=== PATIENT | female | born 1945 | race Caucasian/White ===

== ENCOUNTER 2017-10-11 12:43 | Inpatient (IN) | payer MEDICARE, BC ==
[2017-10-11] MEDS ORDERED: Cyclobenzaprine 10 MG Tab PO PRN (17:03)
[2017-10-11] MEDS ORDERED: Albuterol 8 GM Inhaler INH PRN (17:03)
--- NOTE | 2017-10-11 17:30 | PCM.HP ---
H&P History of Present Illness - General Date of Service: 10/11/17 Admit Problem/Dx: Admission Diagnosis/Problem Admission Diagnosis/Problem Laminectomy Source of Information: Patient, Old Records History Limitations: Reports: No Limitations - History of Present Illness Initial Comments - Free Text/Narative: This is a 71-year-old female patient that had back surgery one week ago for spinal stenosis, osteophytes and a Restorationism. She was transferred here for swing bed. She says she has back pain as 5/10. She is having pain that radiated down her right leg seems to be a little bit better. She has no other concerns today. Lower Back Pain Score (Numeric/FACES): 5 - Related Data Allergies/Adverse Reactions: Allergies Allergy/AdvReac Type Severity Reaction Status Date / Time diatrizoate meglumine Allergy Itching Verified 10/11/17 16:02 Home Medications: Home Meds Albuterol Sulfate [Albuterol Sulfate HFA] 2 puff PO Q4H PRN 01/07/15 [History] Budesonide/Formoterol Fumarate [Symbicort 80-4.5 Mcg Inhaler] 2 puff PO BEDTIME 01/07/15 [History] Cetirizine HCl [Zyrtec] 10 mg PO DAILY 01/07/15 [History] Losartan Potassium [Cozaar] 100 mg PO DAILY 01/07/15 [History] Metoprolol Tartrate [Lopressor] 50 mg PO BID 01/07/15 [History] Simvastatin [Zocor] 40 mg PO BEDTIME 01/07/15 [History] Acetaminophen [Tylenol Extra Strength] 1,000 mg PO Q6H PRN 10/11/17 [History] Acetaminophen/oxyCODONE [Percocet 325-5 MG] 1 - 2 tab PO Q6H PRN 10/11/17 [ History] Calcitriol 0.25 mcg PO MOWEFR 10/11/17 [History] Cholecalciferol (Vitamin D3) [Vitamin D3] 1,000 unit PO DAILY 10/11/17 [History] Cyclobenzaprine [Flexeril] 10 mg PO TID PRN 10/11/17 [History] Magnesium Chloride [Mag-64] 64 mg PO DAILY 10/11/17 [History] Methimazole [Tapazole] 5 mg PO INFANTE 10/11/17 [History] Methimazole [Tapazole] 10 mg PO MOTUWETHFRSA 10/11/17 [History] Triamcinolone Acetonide [Nasacort AQ Cutler] 2 spray NASBOTH DAILY PRN 10/11/17 [ History] Viteyes Areds Advanced Or 1 cap PO BID 10/11/17 [History] Past Medical History HEENT History: Reports: Cataract, Sinusitis Cardiovascular History: Reports: Heart Murmur, High Cholesterol, Hypertension, SOB on Exertion Respiratory History: Reports: Asthma, COPD, SOB Genitourinary History: Reports: Other (See Below) Other Genitourinary History: CKD [facility] History: Reports: Musculoskeletal History: Reports: Back Pain, Chronic, Osteoarthritis, Other ( See Below) Other Musculoskeletal History: osteopenia Endocrine/Metabolic History: Reports: Hyperthyroidism, Obesity/BMI 30+, Osteopenia Dermatologic History: Reports: Other (See Below) Other Dermatologic History: dry flaky skin - Infectious Disease History Infectious Disease History: Reports: Chicken Pox, Measles, Mumps, Shingles - Past Surgical History HEENT Surgical History: Reports: Cataract Surgery GI Surgical History: Reports: Appendectomy Female Surgical History: Reports: Breast Biopsy, Hysterectomy, Oophorectomy Neurological Surgical History: Reports: Discectomy, Laminectomy, Lumbar Spine, Spinal Fusion Social & Family History - Family History Family Medical History: Noncontributory - Tobacco Use Smoking Status *Q: Former Smoker Years of Tobacco use: 30 Packs/Tins Daily: 1.5 Used Tobacco, but Quit: Yes Month Tobacco Last Used: Nov 2005 Second Hand Smoke Exposure: Yes - Caffeine Use Caffeine Use: Reports: None - Alcohol Use Days Per Week of Alcohol Use: 7 Number of Drinks Per Day: 2 Total Drinks Per Week: 14 - Recreational Drug Use Recreational Drug Use: No Drug Use in Last 12 Months: No H&P Review of Systems - Review of Systems: Review Of Systems: See Below General: Reports: No Symptoms HEENT: Reports: No Symptoms Pulmonary: Reports: No Symptoms Cardiovascular: Reports: No Symptoms Gastrointestinal: Reports: Constipation Genitourinary: Reports: No Symptoms Musculoskeletal: Reports: Back Pain, Leg Pain Skin: Reports: No Symptoms Psychiatric: Reports: No Symptoms Neurological: Reports: No Symptoms Hematologic/Lymphatic: Reports: No Symptoms Immunologic: Reports: No Symptoms Exam - Exam Exam: See Below - Vital Signs Vital Signs: Last Vital Signs Temp 97.6 F 10/11/17 15:05 Pulse 76 10/11/17 15:05 Resp 18 10/11/17 15:05 BP 137/49 L 10/11/17 15:05 Pulse Ox 99 10/11/17 15:05 Weight: 204 lb 11.2 oz - Exam General: Alert, Oriented, Cooperative HEENT: PERRLA, Mucosa Moist & Bowdle, Posterior Pharynx Clear, TMs Clear Neck: Supple, Trachea Midline Lungs: Clear to Auscultation, Normal Respiratory Effort. No: Crackles, Rales, Rhonchi Cardiovascular: Regular Rate, Regular Rhythm. No: Systolic Murmur, Diastolic Murmur GI/Abdominal Exam: Normal Bowel Sounds, Soft, Non-Tender, No Organomegaly, No Distention, No Abnormal Bruit, No Mass Back Exam: Other (Bruising lower part of the back. Incision has renay in and healing nicely) Extremities: No Pedal Edema Skin: Warm Neuro Extensive - Mental Status: Alert, Oriented x3, Normal Mood/Affect, Normal Cognition, Memory Intact Psychiatric: Alert, Normal Affect, Normal Mood *Q Meaningful Use (ADM) - VTE *Q VTE Criteria *Q: - Stroke *Q Stroke Criteria *Q: - AMI *Q AMI Criteria *Q: - Problem List (1) Status post lumbar spinal fusion SNOMED Code(s): 69171587256867, [id number] ICD Code: Z98.1 - ARTHRODESIS STATUS Status: Acute Current Visit: Yes Problem List Initiated/Reviewed/Updated: Yes Orders Last 24hrs: Active Orders 24 hr Category Date Time Status Admission Status [Patient Status] [ADT] Routine ADT 10/11/17 14:54 Active Activity as Tolerated [RC] .Routine Care 10/11/17 16:22 Active May Shower [RC] ASDIRECTED Care 10/11/17 16:28 Active Wound Care [RC] QSHIFT Care 10/11/17 16:22 Active OT Evaluation and Treatment [CONS] Routine Cons 10/11/17 16:22 Active PT Evaluation and Treatment [CONS] Routine Cons 10/11/17 16:22 Active Regular Diet [DIET] Diet 10/12/17 Breakfast Active Acetaminophen [Tylenol Extra Strength] Med 10/11/17 17:03 Ordered 1,000 mg PO Q6H PRN Acetaminophen/oxyCODONE [Percocet 325-5 MG] Med 10/11/17 17:03 Ordered 1 tab PO Q6H PRN Albuterol [Ventolin HFA] Med 10/11/17 17:03 Ordered DOSE gm INH Q4H PRN Budesonide/Formoterol Fumarate [Symbicort 80-4.5 Mcg Med 10/11/17 21:00 Ordered Inhaler] 2 puff PO BEDTIME Calcitriol [Rocaltrol] Med 10/11/17 17:15 Ordered 0.25 mcg PO MOWEFR Cetirizine HCl [Zyrtec] Med 10/12/17 09:00 Ordered 10 mg PO DAILY Cholecalciferol (Vitamin D3) [Vitamin D3] Med 10/12/17 09:00 Ordered 1,000 units PO DAILY Cyclobenzaprine [Flexeril] Med 10/11/17 17:03 Ordered 10 mg PO TID PRN Losartan [Cozaar] Med 10/12/17 09:00 Ordered 100 mg PO DAILY Magnesium Chloride [Mag-64] Med 10/12/17 09:00 Ordered 64 mg PO DAILY Methimazole [Tapazole] Med 10/11/17 17:15 Ordered 10 mg PO MOTUWETHFRSA Methimazole [Tapazole] Med 10/17/17 17:03 Ordered 5 mg PO INFANTE Metoprolol Tartrate [Lopressor] Med 10/11/17 21:00 Ordered 50 mg PO BID Simvastatin [Zocor] Med 10/11/17 21:00 Ordered 40 mg PO BEDTIME Triamcinolone Acetonide [Nasacort AQ Cutler] Med 10/11/17 17:03 Ordered DOSE gm NASBOTH DAILY PRN Vinay Areds Advanced Or Med 10/11/17 21:00 Ordered 1 cap PO BID Resuscitation Status Routine Resus Stat 10/11/17 16:22 Ordered Medication Orders Acetaminophen (Tylenol Extra Strength) 1,000 mg PO Q6H PRN PRN Reason: Pain Albuterol (Ventolin Hfa) gm INH Q4H PRN PRN Reason: Dyspnea Calcitriol (Rocaltrol) 0.25 mcg PO MOWEFR SUNDAR Cholecalciferol (Vitamin D3) 1,000 units PO DAILY SUNDAR Cyclobenzaprine HCl (Flexeril) 10 mg PO TID PRN PRN Reason: muscle spasms Losartan Potassium (Cozaar) 100 mg PO DAILY SUNDAR Magnesium Chloride (Mag-64) 64 mg PO DAILY SUNDAR Metoprolol Tartrate (Lopressor) 50 mg PO BID SUNDAR Non-Formulary Medication (Budesonide/Formoterol Fumarate [Symbicort 80-4.5 Mcg Inhaler]) 2 puff PO BEDTIME SUNDAR Non-Formulary Medication (Cetirizine Hcl [Zyrtec]) 10 mg PO DAILY SUNDAR Non-Formulary Medication (Methimazole [Tapazole]) 5 mg PO INFANTE SUNDAR Non-Formulary Medication (Methimazole [Tapazole]) 10 mg PO MOTUWETHFRSA SUNDAR Non-Formulary Medication (Viteyes Areds Advanced Or) 1 cap PO BID SUNDAR Oxycodone/Acetaminophen (Percocet 325-5 Mg) 1 tab PO Q6H PRN PRN Reason: MODERATE PAIN Simvastatin (Zocor) 40 mg PO BEDTIME SUNDAR Triamcinolone Acetonide (Nasacort Aq Cutler) gm NASBOTH DAILY PRN PRN Reason: Rhinitis Assessment/Plan Comment:: . Admit to swing bed. 2. Continue her medications from [facility]. 3. PT/OT. 4. Regular diet. 5. Up per PT/OT.
[2017-10-11] MEDS ORDERED: Calcitriol 0.25 MCG Cap PO SCH (17:45)
[2017-10-11] MEDS ORDERED: Methimazole 5 MG Tab PO ONE (18:30)
[2017-10-11] MEDS: Acetaminophen/oxyCODONE 325-5 MG Tab PO PRN (19:04)
[2017-10-11] MEDS ORDERED: Formoterol/Mometasone 100-5 MCG 8.8 GM Inhaler IH SCH (21:00)
[2017-10-11] MEDS ORDERED: Metoprolol Tartrate 100 MG Tab PO SCH (21:00)
[2017-10-11] MEDS: Simvastatin 40 MG Tab PO SCH (21:25)
[2017-10-12] MEDS: Acetaminophen/oxyCODONE 325-5 MG Tab PO PRN ×4 (01:37→21:47)
[2017-10-12] MEDS ORDERED: Fluticasone Propionate Nasal Spray 16 GM Bottle NASBOTH PRN (09:00)
[2017-10-12] MEDS: Metoprolol Tartrate 50 MG Tab PO SCH ×2 (09:05→21:46)
[2017-10-12] MEDS: Cetirizine 10 MG Tab PO SCH (09:05)
[2017-10-12] MEDS: Magnesium Chloride 64 MG Tab.ER PO SCH (09:06)
[2017-10-12] MEDS: Losartan 100 MG Tab PO SCH (09:06)
[2017-10-12] MEDS: Cholecalciferol (Vitamin D3) 1,000 Unit Tab PO SCH (09:06)
[2017-10-12] MEDS: Methimazole 5 MG Tab PO SCH (09:10)
[2017-10-12] MEDS: Lutein/Minerals/Vitamin C/Vitamin E Acetate Cap PO SCH ×2 (09:14→21:46)
[2017-10-12] MEDS ORDERED: Magnesium Hydroxide 400 MG/5 ML Susp 30 ML Cup PO PRN (10:48)
[2017-10-12] MEDS: Formoterol/Mometasone 100-5 MCG 8.8 GM Inhaler IH SCH (21:45)
[2017-10-12] MEDS: Simvastatin 40 MG Tab PO SCH (21:46)
[2017-10-12] MEDS: Docusate Sodium 100 MG Cap PO SCH (21:51)
[2017-10-13] MEDS: Acetaminophen/oxyCODONE 325-5 MG Tab PO PRN ×3 (07:56→21:15)
[2017-10-13] MEDS: Metoprolol Tartrate 50 MG Tab PO SCH ×2 (09:10→21:14)
[2017-10-13] MEDS: Calcitriol 0.25 MCG Cap PO SCH (09:10)
[2017-10-13] MEDS: Magnesium Chloride 64 MG Tab.ER PO SCH (09:10)
[2017-10-13] MEDS: Lutein/Minerals/Vitamin C/Vitamin E Acetate Cap PO SCH ×2 (09:10→21:14)
[2017-10-13] MEDS: Docusate Sodium 100 MG Cap PO SCH ×2 (09:11→21:13)
[2017-10-13] MEDS: Methimazole 5 MG Tab PO SCH (09:11)
[2017-10-13] MEDS: Losartan 100 MG Tab PO SCH (09:11)
[2017-10-13] MEDS: Cetirizine 10 MG Tab PO SCH (09:12)
[2017-10-13] MEDS: Cholecalciferol (Vitamin D3) 1,000 Unit Tab PO SCH (09:12)
[2017-10-13] MEDS: Formoterol/Mometasone 100-5 MCG 8.8 GM Inhaler IH SCH (21:13)
[2017-10-13] MEDS: Simvastatin 40 MG Tab PO SCH (21:14)
[2017-10-14] MEDS: Acetaminophen/oxyCODONE 325-5 MG Tab PO PRN ×3 (08:24→22:05)
[2017-10-14] MEDS: Docusate Sodium 100 MG Cap PO SCH ×2 (08:29→20:07)
[2017-10-14] MEDS: Methimazole 5 MG Tab PO SCH (08:29)
[2017-10-14] MEDS: Lutein/Minerals/Vitamin C/Vitamin E Acetate Cap PO SCH ×2 (08:30→20:08)
[2017-10-14] MEDS: Losartan 100 MG Tab PO SCH (08:30)
[2017-10-14] MEDS: Magnesium Chloride 64 MG Tab.ER PO SCH (08:30)
[2017-10-14] MEDS: Metoprolol Tartrate 50 MG Tab PO SCH ×2 (08:30→20:08)
[2017-10-14] MEDS: Cetirizine 10 MG Tab PO SCH (08:31)
[2017-10-14] MEDS: Cholecalciferol (Vitamin D3) 1,000 Unit Tab PO SCH (08:31)
[2017-10-14] MEDS: Formoterol/Mometasone 100-5 MCG 8.8 GM Inhaler IH SCH (20:07)
[2017-10-14] MEDS: Simvastatin 40 MG Tab PO SCH (20:10)
[2017-10-15] MEDS: Acetaminophen/oxyCODONE 325-5 MG Tab PO PRN ×2 (05:39→18:47)
[2017-10-15] MEDS: Calcitriol 0.25 MCG Cap PO SCH (08:30)
[2017-10-15] MEDS: Magnesium Chloride 64 MG Tab.ER PO SCH (08:30)
[2017-10-15] MEDS: Methimazole 5 MG Tab PO SCH (08:30)
[2017-10-15] MEDS: Docusate Sodium 100 MG Cap PO SCH ×2 (08:31→21:42)
[2017-10-15] MEDS: Lutein/Minerals/Vitamin C/Vitamin E Acetate Cap PO SCH ×2 (08:32→21:42)
[2017-10-15] MEDS: Metoprolol Tartrate 50 MG Tab PO SCH ×2 (08:32→21:45)
[2017-10-15] MEDS: Cetirizine 10 MG Tab PO SCH (08:32)
[2017-10-15] MEDS: Losartan 100 MG Tab PO SCH (08:32)
[2017-10-15] MEDS: Cholecalciferol (Vitamin D3) 1,000 Unit Tab PO SCH (08:33)
[2017-10-15] MEDS: Acetaminophen 500 MG Tab PO PRN (10:31)
[2017-10-15] MEDS ORDERED: Aluminum Hydroxide/Magnesium Hydroxide Susp 30 ML Cup PO PRN (16:11)
[2017-10-15] MEDS: Simvastatin 40 MG Tab PO SCH (21:41)
[2017-10-15] MEDS: Formoterol/Mometasone 100-5 MCG 8.8 GM Inhaler IH SCH (21:42)
[2017-10-16] MEDS: Methimazole 5 MG Tab PO SCH (08:45)
[2017-10-16] MEDS: Losartan 100 MG Tab PO SCH (08:45)
[2017-10-16] MEDS: Docusate Sodium 100 MG Cap PO SCH ×2 (08:45→21:01)
[2017-10-16] MEDS: Lutein/Minerals/Vitamin C/Vitamin E Acetate Cap PO SCH ×2 (08:46→21:00)
[2017-10-16] MEDS: Metoprolol Tartrate 50 MG Tab PO SCH ×2 (08:46→21:02)
[2017-10-16] MEDS: Cholecalciferol (Vitamin D3) 1,000 Unit Tab PO SCH (08:46)
[2017-10-16] MEDS: Magnesium Chloride 64 MG Tab.ER PO SCH (08:46)
[2017-10-16] MEDS: Cetirizine 10 MG Tab PO SCH (08:46)
[2017-10-16] MEDS: Acetaminophen/oxyCODONE 325-5 MG Tab PO PRN ×2 (09:10→22:39)
[2017-10-16] MEDS: Formoterol/Mometasone 100-5 MCG 8.8 GM Inhaler IH SCH (21:00)
[2017-10-16] MEDS: Simvastatin 40 MG Tab PO SCH (21:01)
[2017-10-17] MEDS ORDERED: Methimazole 5 MG Tab PO SCH (08:00)
[2017-10-17] MEDS: Lutein/Minerals/Vitamin C/Vitamin E Acetate Cap PO SCH ×2 (08:17→21:27)
[2017-10-17] MEDS: Cholecalciferol (Vitamin D3) 1,000 Unit Tab PO SCH (08:17)
[2017-10-17] MEDS: Cetirizine 10 MG Tab PO SCH (08:17)
[2017-10-17] MEDS: Magnesium Chloride 64 MG Tab.ER PO SCH (08:17)
[2017-10-17] MEDS: Metoprolol Tartrate 50 MG Tab PO SCH ×2 (08:17→21:26)
[2017-10-17] MEDS: Docusate Sodium 100 MG Cap PO SCH ×2 (08:18→21:26)
[2017-10-17] MEDS: Losartan 100 MG Tab PO SCH (08:18)
[2017-10-17] MEDS ORDERED: Ondansetron 4 MG Tab.DIS PO PRN (08:57)
[2017-10-17] MEDS: Acetaminophen/oxyCODONE 325-5 MG Tab PO PRN ×2 (10:57→23:06)
[2017-10-17] MEDS ORDERED: Pantoprazole 40 MG Tab.CR PO ONE (11:03)
[2017-10-17] MEDS: Acetaminophen 500 MG Tab PO PRN (18:41)
[2017-10-17] MEDS: Formoterol/Mometasone 100-5 MCG 8.8 GM Inhaler IH SCH (21:26)
[2017-10-17] MEDS: Simvastatin 40 MG Tab PO SCH (21:27)
[2017-10-18] MEDS: Magnesium Chloride 64 MG Tab.ER PO SCH (08:33)
[2017-10-18] MEDS: Metoprolol Tartrate 50 MG Tab PO SCH ×2 (08:33→20:17)
[2017-10-18] MEDS: Cholecalciferol (Vitamin D3) 1,000 Unit Tab PO SCH (08:33)
[2017-10-18] MEDS: Calcitriol 0.25 MCG Cap PO SCH (08:33)
[2017-10-18] MEDS: Losartan 100 MG Tab PO SCH (08:33)
[2017-10-18] MEDS: Lutein/Minerals/Vitamin C/Vitamin E Acetate Cap PO SCH ×2 (08:33→20:17)
[2017-10-18] MEDS: Cetirizine 10 MG Tab PO SCH (08:33)
[2017-10-18] MEDS: Pantoprazole 40 MG Tab.CR PO SCH (08:34)
[2017-10-18] MEDS: Docusate Sodium 100 MG Cap PO SCH ×2 (08:34→20:16)
[2017-10-18] MEDS: Methimazole 5 MG Tab PO SCH (08:34)
[2017-10-18] MEDS: Acetaminophen/oxyCODONE 325-5 MG Tab PO PRN ×3 (09:38→23:15)
[2017-10-18] MEDS: Acetaminophen 500 MG Tab PO PRN (17:02)
[2017-10-18] MEDS: Formoterol/Mometasone 100-5 MCG 8.8 GM Inhaler IH SCH (20:16)
[2017-10-18] MEDS: Simvastatin 40 MG Tab PO SCH (20:17)
[2017-10-19] MEDS: Pantoprazole 40 MG Tab.CR PO SCH ×2 (05:51→08:08)
[2017-10-19] MEDS: Lutein/Minerals/Vitamin C/Vitamin E Acetate Cap PO SCH ×2 (08:08→20:47)
[2017-10-19] MEDS: Methimazole 5 MG Tab PO SCH (08:10)
[2017-10-19] MEDS: Losartan 100 MG Tab PO SCH (08:11)
[2017-10-19] MEDS: Docusate Sodium 100 MG Cap PO SCH ×2 (08:11→20:46)
[2017-10-19] MEDS: Metoprolol Tartrate 50 MG Tab PO SCH ×2 (08:12→20:49)
[2017-10-19] MEDS: Magnesium Chloride 64 MG Tab.ER PO SCH (08:13)
[2017-10-19] MEDS: Cetirizine 10 MG Tab PO SCH (08:13)
[2017-10-19] MEDS: Cholecalciferol (Vitamin D3) 1,000 Unit Tab PO SCH (08:13)
[2017-10-19] MEDS: Acetaminophen 500 MG Tab PO PRN (08:27)
[2017-10-19] MEDS: Acetaminophen/oxyCODONE 325-5 MG Tab PO PRN ×2 (14:03→23:39)
[2017-10-19] MEDS: Simvastatin 40 MG Tab PO SCH (20:46)
[2017-10-19] MEDS: Formoterol/Mometasone 100-5 MCG 8.8 GM Inhaler IH SCH (20:46)
[2017-10-20] MEDS: Acetaminophen/oxyCODONE 325-5 MG Tab PO PRN ×2 (08:08→22:14)
[2017-10-20] MEDS: Calcitriol 0.25 MCG Cap PO SCH (08:15)
[2017-10-20] MEDS: Pantoprazole 40 MG Tab.CR PO SCH (08:15)
[2017-10-20] MEDS: Methimazole 5 MG Tab PO SCH (08:15)
[2017-10-20] MEDS: Metoprolol Tartrate 50 MG Tab PO SCH ×2 (09:35→20:02)
[2017-10-20] MEDS: Losartan 100 MG Tab PO SCH (09:35)
[2017-10-20] MEDS: Magnesium Chloride 64 MG Tab.ER PO SCH (09:35)
[2017-10-20] MEDS: Docusate Sodium 100 MG Cap PO SCH ×2 (09:35→20:00)
[2017-10-20] MEDS: Cholecalciferol (Vitamin D3) 1,000 Unit Tab PO SCH (09:36)
[2017-10-20] MEDS: Cetirizine 10 MG Tab PO SCH (09:36)
[2017-10-20] MEDS: Lutein/Minerals/Vitamin C/Vitamin E Acetate Cap PO SCH ×2 (09:36→20:02)
[2017-10-20] MEDS: Acetaminophen 500 MG Tab PO PRN ×2 (11:09→18:40)
[2017-10-20] MEDS: Formoterol/Mometasone 100-5 MCG 8.8 GM Inhaler IH SCH (20:01)
[2017-10-20] MEDS: Simvastatin 40 MG Tab PO SCH (20:03)
[2017-10-21] MEDS: Acetaminophen 500 MG Tab PO PRN ×2 (04:30→11:44)
[2017-10-21] MEDS: Pantoprazole 40 MG Tab.CR PO SCH (09:28)
[2017-10-21] MEDS: Docusate Sodium 100 MG Cap PO SCH (09:28)
[2017-10-21] MEDS: Methimazole 5 MG Tab PO SCH (09:28)
[2017-10-21] MEDS: Losartan 100 MG Tab PO SCH (09:28)
--- NOTE | 2017-10-21 09:28 | DISCH ---
DISCHARGE DATE: 10/21/2017 REASON FOR ADMISSION: 1. Status post lumbar fusion and laminectomy. 2. CKD. 3. COPD. 4. Hypertension. 5. Hyperlipidemia. CONSULTATIONS: Physical and Occupational Therapy. BRIEF HISTORY AND HOSPITAL COURSE: A 71-year-old female who had laminectomy in [facility] and was admitted on the for pain control, physical therapy and rehab before going home. She did well with physical and occupation therapy. She did not use any Flexeril, was using Percocet for pain as needed. Had some constipation, treated with stool softeners. She was deemed stable and ready to go home physically on the and we will discharge her home on regular medications, and a prescription of Percocet. DISCHARGE MEDICATIONS: 1. Metoprolol 50 mg b.i.d. 2. Methimazole 10 mg p.o. 6 days a week and 5 mg on Sundays. 3. Magnesium chloride 64 mg daily. 4. Losartan 100 mg a day. 5. Vitamin D3 1000 units daily. 6. Calcitriol 0.25 mcg 3 times a week. 7. Symbicort 2 puffs at bedtime. 8. Albuterol p.r.n. 9. Percocet 30 tabs to take 1 every 6 hours p.r.n. 10.Triamcinolone acetonide 2 sprays in both nostrils p.r.n. 11.Tylenol 1000 mg every 6 hours p.r.n. 12.Zocor 40 mg a day at night. FOLLOWUP: The patient is advised to see Luciana Duvall at the clinic within a week of discharge and follow up with neurosurgeon as previously scheduled. I spent more than 35 minutes in the discharge of this patient. Please note that she will go home with home health to help with medications and skilled need for physical therapy outpatient. /[id number] EMMA/GAL
[2017-10-21] MEDS: Magnesium Chloride 64 MG Tab.ER PO SCH (09:31)
[2017-10-21] MEDS: Metoprolol Tartrate 50 MG Tab PO SCH (09:31)
[2017-10-21 09:32] VITALS: BP 113/61
[2017-10-21] MEDS: Cholecalciferol (Vitamin D3) 1,000 Unit Tab PO SCH (09:32)
[2017-10-21] MEDS: Lutein/Minerals/Vitamin C/Vitamin E Acetate Cap PO SCH (09:32)
[2017-10-21] MEDS: Cetirizine 10 MG Tab PO SCH (09:32)
[2017-10-21] MEDS: Acetaminophen/oxyCODONE 325-5 MG Tab PO PRN (13:05)
== END 2017-10-21 13:15 | disposition home health service (06) | DRG 561 ==
LOC: FB.MS 14:45
PROVIDERS: ADMIT Family Medicine; ATTEND Family Medicine
DX: Z47.89 Encounter for other orthopedic aftercare (principal); G89.29 Other chronic pain; M54.9 Dorsalgia, unspecified; J44.9 Chronic obstructive pulmonary disease, unspecified; I12.9 Hypertensive chronic kidney disease with stage 1 through stage 4 chronic kidney disease, or unspecified chronic kidney disease; N18.9 Chronic kidney disease, unspecified; E78.5 Hyperlipidemia, unspecified; M19.90 Unspecified osteoarthritis, unspecified site; M85.80 Other specified disorders of bone density and structure, unspecified site; E66.9 Obesity, unspecified; E03.9 Hypothyroidism, unspecified; Z87.891 Personal history of nicotine dependence; Z79.899 Other long term (current) drug therapy
CPT/HCPCS: 97112-GP; 97116-GP; 97161-GP; 97165-GO; 97530-GO; 97530-GO-KX; 97530-GP; 97535-GO; A9270-GY

== ENCOUNTER 2022-09-17 17:43 | Emergency (ER) | payer MEDICARE, BC ==
[2022-09-17 18:05] VITALS: BP 107/59; PULSE 85
[2022-09-17] MEDS ORDERED: Sodium Chloride 0.9% 1,000 ML IV ONE ×2 (18:15)
[2022-09-17 18:52] LABS: ESTIMATED GFR 16 mL/min (>60)
[2022-09-17] MEDS ORDERED: Carbidopa/Levodopa 10-100 MG Tab PO ONE (20:22)
== END 2022-09-17 22:25 ==
LOC: FB.ED 17:43
DX: I44.0 Atrioventricular block, first degree (principal); I44.7 Left bundle-branch block, unspecified; K85.90 Acute pancreatitis without necrosis or infection, unspecified; N17.9 Acute kidney failure, unspecified; E86.0 Dehydration; R79.89 Other specified abnormal findings of blood chemistry; R79.82 Elevated C-reactive protein (CRP); I12.9 Hypertensive chronic kidney disease with stage 1 through stage 4 chronic kidney disease, or unspecified chronic kidney disease; N18.9 Chronic kidney disease, unspecified; Z90.49 Acquired absence of other specified parts of digestive tract; Z90.710 Acquired absence of both cervix and uterus
CPT/HCPCS: 36415; 71045; 74176; 80053; 83605; 83690; 83735; 84443; 84484; 85025; 86140; 87040; 93005; 96360; 96361; 99285; A9270; J7030

== ENCOUNTER 2022-09-30 11:19 | Inpatient (IN) | payer MEDICARE, BC ==
[2022-09-30] MEDS ORDERED: Carbidopa/Levodopa 10-100 MG Tab PO PRN (13:23)
[2022-09-30] MEDS ORDERED: Ondansetron 4 MG Tab.DIS PO PRN (13:23)
[2022-09-30] MEDS ORDERED: Albuterol 8 GM Inhaler INH PRN (13:23)
[2022-09-30] MEDS: Carbidopa/Levodopa 10-100 MG Tab PO SCH (17:50)
[2022-09-30] MEDS: Pantoprazole 40 MG Tab.CR PO SCH (17:50)
[2022-09-30] MEDS: Mirtazapine 15 MG Tab PO SCH (20:35)
[2022-09-30] MEDS: Lutein/Minerals/Vitamin C/Vitamin E Acetate Cap PO SCH (20:35)
[2022-09-30] MEDS: atorvaSTATin 20 MG Tab PO SCH (20:36)
[2022-09-30] MEDS: Magnesium Chloride 64 MG Tab.ER PO SCH (20:36)
[2022-09-30] MEDS: Formoterol/Mometasone 200-5 MCG 8.8 GM Inhaler IH SCH (20:36)
[2022-09-30] MEDS: Metoprolol Tartrate 25 MG Tab PO SCH (20:40)
[2022-10-01] MEDS: Carbidopa/Levodopa 10-100 MG Tab PO SCH ×4 (00:47→23:54)
[2022-10-01] MEDS: Formoterol/Mometasone 200-5 MCG 8.8 GM Inhaler IH SCH ×2 (09:43→20:07)
[2022-10-01] MEDS: Fluticasone NASAL Spray 16 GM Bottle NASBOTH SCH (09:44)
[2022-10-01] MEDS: Folic Acid 1 MG Tab PO SCH (09:45)
[2022-10-01] MEDS: Furosemide 20 MG Tab PO SCH (09:45)
[2022-10-01] MEDS: Metoprolol Tartrate 25 MG Tab PO SCH ×2 (09:46→20:07)
[2022-10-01] MEDS: Magnesium Chloride 64 MG Tab.ER PO SCH ×2 (09:47→20:07)
[2022-10-01] MEDS: Methimazole 5 MG Tab PO SCH (09:48)
[2022-10-01] MEDS: Lutein/Minerals/Vitamin C/Vitamin E Acetate Cap PO SCH ×2 (09:48→20:07)
[2022-10-01] MEDS: Cyanocobalamin (Vitamin B12) 1,000 MCG Tab PO SCH (09:49)
[2022-10-01] MEDS: Cholecalciferol (Vitamin D3) 25 MCG Tab PO SCH (09:49)
[2022-10-01] MEDS: Cetirizine 10 MG Tab PO SCH (09:51)
[2022-10-01] MEDS: Acetaminophen 650 MG Tab.ER PO PRN (15:01)
[2022-10-01] MEDS: Pantoprazole 40 MG Tab.CR PO SCH (16:59)
[2022-10-01] MEDS: atorvaSTATin 20 MG Tab PO SCH (20:07)
[2022-10-01] MEDS: Mirtazapine 15 MG Tab PO SCH (20:09)
[2022-10-01] MEDS: Polyethylene Glycol 3350 Powder 17 GM Packet PO PRN (20:36)
[2022-10-01] MEDS: oxyCODONE 5 MG Tab PO PRN (22:42)
[2022-10-01] MEDS: Carbidopa/Levodopa 10-100 MG Tab PO PRN (23:55)
[2022-10-02 07:02] LABS: ESTIMATED GFR 31 mL/min (>60)
[2022-10-02] MEDS: Fluticasone NASAL Spray 16 GM Bottle NASBOTH SCH (09:19)
[2022-10-02] MEDS: Folic Acid 1 MG Tab PO SCH (09:19)
[2022-10-02] MEDS: Formoterol/Mometasone 200-5 MCG 8.8 GM Inhaler IH SCH ×2 (09:19→20:47)
[2022-10-02] MEDS: Carbidopa/Levodopa 10-100 MG Tab PO SCH ×3 (09:19→23:49)
[2022-10-02] MEDS: Metoprolol Tartrate 25 MG Tab PO SCH ×2 (09:20→20:50)
[2022-10-02] MEDS: Cholecalciferol (Vitamin D3) 25 MCG Tab PO SCH (09:20)
[2022-10-02] MEDS: Cyanocobalamin (Vitamin B12) 1,000 MCG Tab PO SCH (09:20)
[2022-10-02] MEDS: Magnesium Chloride 64 MG Tab.ER PO SCH ×2 (09:20→20:48)
[2022-10-02] MEDS: Furosemide 20 MG Tab PO SCH (09:20)
[2022-10-02] MEDS: Lutein/Minerals/Vitamin C/Vitamin E Acetate Cap PO SCH ×2 (09:21→20:48)
[2022-10-02] MEDS: Methimazole 5 MG Tab PO SCH (09:21)
[2022-10-02] MEDS: Cetirizine 10 MG Tab PO SCH (09:21)
[2022-10-02] MEDS: Polyethylene Glycol 3350 Powder 17 GM Packet PO PRN (09:23)
[2022-10-02] MEDS ORDERED: Mirtazapine 15 MG Tab PO PRN (10:00)
[2022-10-02] MEDS: Pantoprazole 40 MG Tab.CR PO SCH (17:03)
[2022-10-02] MEDS: atorvaSTATin 20 MG Tab PO SCH (20:49)
[2022-10-02] MEDS: Acetaminophen 650 MG Tab.ER PO PRN (21:39)
[2022-10-02] MEDS: Carbidopa/Levodopa 10-100 MG Tab PO PRN (23:50)
[2022-10-03] MEDS: Magnesium Chloride 64 MG Tab.ER PO SCH ×2 (09:03→21:00)
[2022-10-03] MEDS: Metoprolol Tartrate 25 MG Tab PO SCH ×2 (09:04→21:05)
[2022-10-03] MEDS: Cholecalciferol (Vitamin D3) 25 MCG Tab PO SCH (09:04)
[2022-10-03] MEDS: Lutein/Minerals/Vitamin C/Vitamin E Acetate Cap PO SCH ×2 (09:04→21:09)
[2022-10-03] MEDS: Furosemide 20 MG Tab PO SCH (09:04)
[2022-10-03] MEDS: Folic Acid 1 MG Tab PO SCH (09:04)
[2022-10-03] MEDS: Cetirizine 10 MG Tab PO SCH (09:04)
[2022-10-03] MEDS: Cyanocobalamin (Vitamin B12) 1,000 MCG Tab PO SCH (09:04)
[2022-10-03] MEDS: Fluticasone NASAL Spray 16 GM Bottle NASBOTH SCH (09:05)
[2022-10-03] MEDS: Methimazole 5 MG Tab PO SCH (09:05)
[2022-10-03] MEDS: Formoterol/Mometasone 200-5 MCG 8.8 GM Inhaler IH SCH ×2 (09:05→21:00)
[2022-10-03] MEDS: Carbidopa/Levodopa 10-100 MG Tab PO SCH ×2 (10:05→16:59)
[2022-10-03] MEDS: Acetaminophen 650 MG Tab.ER PO PRN (16:20)
[2022-10-03] MEDS: Pantoprazole 40 MG Tab.CR PO SCH (16:59)
[2022-10-03] MEDS: atorvaSTATin 20 MG Tab PO SCH (21:00)
[2022-10-03] MEDS: oxyCODONE 5 MG Tab PO PRN (21:21)
[2022-10-04] MEDS: Carbidopa/Levodopa 10-100 MG Tab PO SCH ×4 (00:08→23:47)
[2022-10-04] MEDS: Carbidopa/Levodopa 10-100 MG Tab PO PRN ×2 (00:09→23:47)
[2022-10-04] MEDS: Fluticasone NASAL Spray 16 GM Bottle NASBOTH SCH (09:27)
[2022-10-04] MEDS: Formoterol/Mometasone 200-5 MCG 8.8 GM Inhaler IH SCH ×2 (09:27→21:23)
[2022-10-04] MEDS: Folic Acid 1 MG Tab PO SCH (09:28)
[2022-10-04] MEDS: Metoprolol Tartrate 25 MG Tab PO SCH ×2 (09:28→21:24)
[2022-10-04] MEDS: Furosemide 20 MG Tab PO SCH (09:28)
[2022-10-04] MEDS: Magnesium Chloride 64 MG Tab.ER PO SCH ×2 (09:29→21:25)
[2022-10-04] MEDS: Cyanocobalamin (Vitamin B12) 1,000 MCG Tab PO SCH (09:29)
[2022-10-04] MEDS: Methimazole 5 MG Tab PO SCH (09:29)
[2022-10-04] MEDS: Lutein/Minerals/Vitamin C/Vitamin E Acetate Cap PO SCH ×2 (09:29→21:25)
[2022-10-04] MEDS: Cholecalciferol (Vitamin D3) 25 MCG Tab PO SCH (09:29)
[2022-10-04] MEDS: Cetirizine 10 MG Tab PO SCH (09:30)
[2022-10-04] MEDS: Pantoprazole 40 MG Tab.CR PO SCH (17:06)
[2022-10-04] MEDS: atorvaSTATin 20 MG Tab PO SCH (21:24)
[2022-10-04] MEDS: oxyCODONE 5 MG Tab PO PRN (23:20)
[2022-10-05] MEDS: Formoterol/Mometasone 200-5 MCG 8.8 GM Inhaler IH SCH ×2 (08:37→21:43)
[2022-10-05] MEDS: Fluticasone NASAL Spray 16 GM Bottle NASBOTH SCH (08:37)
[2022-10-05] MEDS: Metoprolol Tartrate 25 MG Tab PO SCH ×2 (08:38→21:43)
[2022-10-05] MEDS: Folic Acid 1 MG Tab PO SCH (08:38)
[2022-10-05] MEDS: Magnesium Chloride 64 MG Tab.ER PO SCH ×2 (08:38→21:42)
[2022-10-05] MEDS: Furosemide 20 MG Tab PO SCH (08:38)
[2022-10-05] MEDS: Methimazole 5 MG Tab PO SCH (08:39)
[2022-10-05] MEDS: Cholecalciferol (Vitamin D3) 25 MCG Tab PO SCH (08:39)
[2022-10-05] MEDS: Cyanocobalamin (Vitamin B12) 1,000 MCG Tab PO SCH (08:39)
[2022-10-05] MEDS: Cetirizine 10 MG Tab PO SCH (08:39)
[2022-10-05] MEDS: Lutein/Minerals/Vitamin C/Vitamin E Acetate Cap PO SCH ×2 (08:39→21:42)
[2022-10-05] MEDS: Carbidopa/Levodopa 10-100 MG Tab PO SCH ×2 (09:58→16:52)
[2022-10-05] MEDS: Pantoprazole 40 MG Tab.CR PO SCH (16:52)
[2022-10-05] MEDS: Acetaminophen 650 MG Tab.ER PO PRN (21:38)
[2022-10-05] MEDS: atorvaSTATin 20 MG Tab PO SCH (21:42)
[2022-10-05] MEDS: oxyCODONE 5 MG Tab PO PRN (23:24)
[2022-10-06] MEDS: Cetirizine 10 MG Tab PO SCH (09:55)
[2022-10-06] MEDS: Magnesium Chloride 64 MG Tab.ER PO SCH ×2 (09:56→21:21)
[2022-10-06] MEDS: Methimazole 5 MG Tab PO SCH (09:56)
[2022-10-06] MEDS: Metoprolol Tartrate 25 MG Tab PO SCH ×2 (09:57→21:23)
[2022-10-06] MEDS: Cyanocobalamin (Vitamin B12) 1,000 MCG Tab PO SCH (09:57)
[2022-10-06] MEDS: Furosemide 20 MG Tab PO SCH (09:57)
[2022-10-06] MEDS: Folic Acid 1 MG Tab PO SCH (09:57)
[2022-10-06] MEDS: Carbidopa/Levodopa 10-100 MG Tab PO SCH ×4 (09:58→23:42)
[2022-10-06] MEDS: Cholecalciferol (Vitamin D3) 25 MCG Tab PO SCH (09:58)
[2022-10-06] MEDS: Formoterol/Mometasone 200-5 MCG 8.8 GM Inhaler IH SCH ×2 (09:58→21:19)
[2022-10-06] MEDS: Lutein/Minerals/Vitamin C/Vitamin E Acetate Cap PO SCH ×2 (09:58→21:21)
[2022-10-06] MEDS: Fluticasone NASAL Spray 16 GM Bottle NASBOTH SCH (09:58)
[2022-10-06] MEDS: Pantoprazole 40 MG Tab.CR PO SCH (17:08)
[2022-10-06] MEDS: atorvaSTATin 20 MG Tab PO SCH (21:20)
[2022-10-06] MEDS: Acetaminophen 650 MG Tab.ER PO PRN (22:41)
[2022-10-07] MEDS: Carbidopa/Levodopa 10-100 MG Tab PO PRN (00:05)
[2022-10-07] MEDS: oxyCODONE 5 MG Tab PO PRN (01:32)
[2022-10-07] MEDS: Carbidopa/Levodopa 10-100 MG Tab PO SCH ×3 (10:05→23:46)
[2022-10-07] MEDS: Formoterol/Mometasone 200-5 MCG 8.8 GM Inhaler IH SCH ×2 (10:05→21:13)
[2022-10-07] MEDS: Cyanocobalamin (Vitamin B12) 1,000 MCG Tab PO SCH (10:05)
[2022-10-07] MEDS: Lutein/Minerals/Vitamin C/Vitamin E Acetate Cap PO SCH ×2 (10:05→21:13)
[2022-10-07] MEDS: Furosemide 20 MG Tab PO SCH (10:06)
[2022-10-07] MEDS: Folic Acid 1 MG Tab PO SCH (10:06)
[2022-10-07] MEDS: Fluticasone NASAL Spray 16 GM Bottle NASBOTH SCH (10:06)
[2022-10-07] MEDS: Magnesium Chloride 64 MG Tab.ER PO SCH ×2 (10:06→21:16)
[2022-10-07] MEDS: Cholecalciferol (Vitamin D3) 25 MCG Tab PO SCH (10:06)
[2022-10-07] MEDS: Cetirizine 10 MG Tab PO SCH (10:06)
[2022-10-07] MEDS: Methimazole 5 MG Tab PO SCH (10:07)
[2022-10-07] MEDS: Metoprolol Tartrate 25 MG Tab PO SCH ×2 (10:07→21:15)
[2022-10-07] MEDS: Pantoprazole 40 MG Tab.CR PO SCH (17:05)
[2022-10-07] MEDS: atorvaSTATin 20 MG Tab PO SCH (21:14)
[2022-10-07] MEDS: Acetaminophen 650 MG Tab.ER PO PRN (21:19)
[2022-10-08 06:57] LABS: ESTIMATED GFR 33 mL/min (>60)
[2022-10-08] MEDS: Folic Acid 1 MG Tab PO SCH (08:55)
[2022-10-08] MEDS: Fluticasone NASAL Spray 16 GM Bottle NASBOTH SCH (08:55)
[2022-10-08] MEDS: Furosemide 20 MG Tab PO SCH (08:56)
[2022-10-08] MEDS: Formoterol/Mometasone 200-5 MCG 8.8 GM Inhaler IH SCH ×2 (08:56→21:25)
[2022-10-08] MEDS: Cyanocobalamin (Vitamin B12) 1,000 MCG Tab PO SCH (08:57)
[2022-10-08] MEDS: Metoprolol Tartrate 25 MG Tab PO SCH ×2 (08:57→21:27)
[2022-10-08] MEDS: Magnesium Chloride 64 MG Tab.ER PO SCH ×2 (08:57→21:28)
[2022-10-08] MEDS: Lutein/Minerals/Vitamin C/Vitamin E Acetate Cap PO SCH ×2 (09:00→21:28)
[2022-10-08] MEDS: Cholecalciferol (Vitamin D3) 25 MCG Tab PO SCH (09:00)
[2022-10-08] MEDS: Cetirizine 10 MG Tab PO SCH (09:00)
[2022-10-08] MEDS: Methimazole 5 MG Tab PO SCH (09:01)
[2022-10-08] MEDS: Carbidopa/Levodopa 10-100 MG Tab PO SCH ×3 (09:07→23:59)
[2022-10-08] MEDS: Pantoprazole 40 MG Tab.CR PO SCH (17:29)
[2022-10-08] MEDS: atorvaSTATin 20 MG Tab PO SCH (21:27)
[2022-10-08] MEDS: Acetaminophen 650 MG Tab.ER PO PRN (21:31)
[2022-10-09] MEDS: oxyCODONE 5 MG Tab PO PRN (00:03)
[2022-10-09] MEDS: Formoterol/Mometasone 200-5 MCG 8.8 GM Inhaler IH SCH ×2 (08:47→20:51)
[2022-10-09] MEDS: Fluticasone NASAL Spray 16 GM Bottle NASBOTH SCH (08:47)
[2022-10-09] MEDS: Cetirizine 10 MG Tab PO SCH (08:48)
[2022-10-09] MEDS: Cholecalciferol (Vitamin D3) 25 MCG Tab PO SCH (08:48)
[2022-10-09] MEDS: Methimazole 5 MG Tab PO SCH (08:48)
[2022-10-09] MEDS: Metoprolol Tartrate 25 MG Tab PO SCH ×2 (08:48→20:51)
[2022-10-09] MEDS: Cyanocobalamin (Vitamin B12) 1,000 MCG Tab PO SCH (08:48)
[2022-10-09] MEDS: Lutein/Minerals/Vitamin C/Vitamin E Acetate Cap PO SCH ×2 (08:48→20:51)
[2022-10-09] MEDS: Furosemide 20 MG Tab PO SCH (08:49)
[2022-10-09] MEDS: Folic Acid 1 MG Tab PO SCH (08:49)
[2022-10-09] MEDS: Magnesium Chloride 64 MG Tab.ER PO SCH ×2 (08:49→20:51)
[2022-10-09] MEDS: Carbidopa/Levodopa 10-100 MG Tab PO SCH ×2 (09:57→17:10)
[2022-10-09] MEDS: Pantoprazole 40 MG Tab.CR PO SCH (17:10)
[2022-10-09] MEDS: atorvaSTATin 20 MG Tab PO SCH (20:51)
[2022-10-09] MEDS: Acetaminophen 650 MG Tab.ER PO PRN (20:57)
[2022-10-10] MEDS: Carbidopa/Levodopa 10-100 MG Tab PO SCH ×3 (00:14→17:11)
[2022-10-10] MEDS: oxyCODONE 5 MG Tab PO PRN (00:22)
[2022-10-10] MEDS: Formoterol/Mometasone 200-5 MCG 8.8 GM Inhaler IH SCH ×2 (09:03→20:07)
[2022-10-10] MEDS: Fluticasone NASAL Spray 16 GM Bottle NASBOTH SCH (09:03)
[2022-10-10] MEDS: Magnesium Chloride 64 MG Tab.ER PO SCH ×2 (09:04→20:08)
[2022-10-10] MEDS: Lutein/Minerals/Vitamin C/Vitamin E Acetate Cap PO SCH ×2 (09:04→20:08)
[2022-10-10] MEDS: Metoprolol Tartrate 25 MG Tab PO SCH ×2 (09:04→20:08)
[2022-10-10] MEDS: Cholecalciferol (Vitamin D3) 25 MCG Tab PO SCH (09:05)
[2022-10-10] MEDS: Methimazole 5 MG Tab PO SCH (09:06)
[2022-10-10] MEDS: Folic Acid 1 MG Tab PO SCH (09:07)
[2022-10-10] MEDS: Furosemide 20 MG Tab PO SCH (09:07)
[2022-10-10] MEDS: Cyanocobalamin (Vitamin B12) 1,000 MCG Tab PO SCH (09:08)
[2022-10-10] MEDS: Cetirizine 10 MG Tab PO SCH (09:08)
[2022-10-10] MEDS: Pantoprazole 40 MG Tab.CR PO SCH (17:11)
[2022-10-10] MEDS: atorvaSTATin 20 MG Tab PO SCH (20:08)
[2022-10-10] MEDS: Acetaminophen 650 MG Tab.ER PO PRN (20:08)
[2022-10-11] MEDS: Carbidopa/Levodopa 10-100 MG Tab PO SCH ×3 (00:08→17:00)
[2022-10-11] MEDS: oxyCODONE 5 MG Tab PO PRN (00:08)
[2022-10-11] MEDS: Formoterol/Mometasone 200-5 MCG 8.8 GM Inhaler IH SCH ×2 (09:14→20:06)
[2022-10-11] MEDS: Fluticasone NASAL Spray 16 GM Bottle NASBOTH SCH (09:14)
[2022-10-11] MEDS: Cetirizine 10 MG Tab PO SCH (09:15)
[2022-10-11] MEDS: Methimazole 5 MG Tab PO SCH (09:15)
[2022-10-11] MEDS: Folic Acid 1 MG Tab PO SCH (09:15)
[2022-10-11] MEDS: Furosemide 20 MG Tab PO SCH (09:15)
[2022-10-11] MEDS: Cholecalciferol (Vitamin D3) 25 MCG Tab PO SCH (09:15)
[2022-10-11] MEDS: Cyanocobalamin (Vitamin B12) 1,000 MCG Tab PO SCH (09:16)
[2022-10-11] MEDS: Lutein/Minerals/Vitamin C/Vitamin E Acetate Cap PO SCH ×2 (09:16→20:06)
[2022-10-11] MEDS: Magnesium Chloride 64 MG Tab.ER PO SCH ×2 (09:16→20:06)
[2022-10-11] MEDS: Metoprolol Tartrate 25 MG Tab PO SCH ×2 (09:19→20:06)
[2022-10-11] MEDS: Pantoprazole 40 MG Tab.CR PO SCH (17:00)
[2022-10-11] MEDS: atorvaSTATin 20 MG Tab PO SCH (20:06)
[2022-10-11] MEDS: Acetaminophen 650 MG Tab.ER PO PRN (20:07)
[2022-10-12] MEDS: oxyCODONE 5 MG Tab PO PRN ×2 (00:01→23:57)
[2022-10-12] MEDS: Carbidopa/Levodopa 10-100 MG Tab PO SCH ×4 (00:11→23:57)
[2022-10-12] MEDS: Formoterol/Mometasone 200-5 MCG 8.8 GM Inhaler IH SCH ×2 (09:03→20:33)
[2022-10-12] MEDS: Furosemide 20 MG Tab PO SCH (09:04)
[2022-10-12] MEDS: Fluticasone NASAL Spray 16 GM Bottle NASBOTH SCH (09:04)
[2022-10-12] MEDS: Folic Acid 1 MG Tab PO SCH (09:04)
[2022-10-12] MEDS: Lutein/Minerals/Vitamin C/Vitamin E Acetate Cap PO SCH ×2 (09:04→20:33)
[2022-10-12] MEDS: Magnesium Chloride 64 MG Tab.ER PO SCH ×2 (09:04→20:33)
[2022-10-12] MEDS: Cetirizine 10 MG Tab PO SCH (09:05)
[2022-10-12] MEDS: Cyanocobalamin (Vitamin B12) 1,000 MCG Tab PO SCH (09:07)
[2022-10-12] MEDS: Cholecalciferol (Vitamin D3) 25 MCG Tab PO SCH (09:07)
[2022-10-12] MEDS: Metoprolol Tartrate 25 MG Tab PO SCH ×2 (09:08→20:33)
[2022-10-12] MEDS: Methimazole 5 MG Tab PO SCH (09:16)
[2022-10-12] MEDS: Pantoprazole 40 MG Tab.CR PO SCH (17:08)
[2022-10-12] MEDS: atorvaSTATin 20 MG Tab PO SCH (20:33)
[2022-10-12] MEDS: Acetaminophen 650 MG Tab.ER PO PRN (22:13)
[2022-10-13] MEDS: Formoterol/Mometasone 200-5 MCG 8.8 GM Inhaler IH SCH ×2 (08:51→19:59)
[2022-10-13] MEDS: Fluticasone NASAL Spray 16 GM Bottle NASBOTH SCH (08:52)
[2022-10-13] MEDS: Furosemide 20 MG Tab PO SCH (08:53)
[2022-10-13] MEDS: Folic Acid 1 MG Tab PO SCH (08:53)
[2022-10-13] MEDS: Metoprolol Tartrate 25 MG Tab PO SCH ×2 (08:53→20:00)
[2022-10-13] MEDS: Methimazole 5 MG Tab PO SCH (08:56)
[2022-10-13] MEDS: Magnesium Chloride 64 MG Tab.ER PO SCH ×2 (08:56→20:01)
[2022-10-13] MEDS: Lutein/Minerals/Vitamin C/Vitamin E Acetate Cap PO SCH ×2 (08:57→20:01)
[2022-10-13] MEDS: Cyanocobalamin (Vitamin B12) 1,000 MCG Tab PO SCH (08:57)
[2022-10-13] MEDS: Cholecalciferol (Vitamin D3) 25 MCG Tab PO SCH (08:58)
[2022-10-13] MEDS: Cetirizine 10 MG Tab PO SCH (08:59)
[2022-10-13] MEDS: Carbidopa/Levodopa 10-100 MG Tab PO SCH ×3 (10:02→23:58)
[2022-10-13] MEDS: Pantoprazole 40 MG Tab.CR PO SCH (17:11)
[2022-10-13] MEDS: atorvaSTATin 20 MG Tab PO SCH (20:00)
[2022-10-13] MEDS: Acetaminophen 650 MG Tab.ER PO PRN (22:19)
[2022-10-13] MEDS: oxyCODONE 5 MG Tab PO PRN (23:56)
[2022-10-14] MEDS: Fluticasone NASAL Spray 16 GM Bottle NASBOTH SCH (09:01)
[2022-10-14] MEDS: Lutein/Minerals/Vitamin C/Vitamin E Acetate Cap PO SCH (09:02)
[2022-10-14] MEDS: Cholecalciferol (Vitamin D3) 25 MCG Tab PO SCH (09:02)
[2022-10-14] MEDS: Folic Acid 1 MG Tab PO SCH (09:02)
[2022-10-14] MEDS: Formoterol/Mometasone 200-5 MCG 8.8 GM Inhaler IH SCH (09:02)
[2022-10-14] MEDS: Methimazole 5 MG Tab PO SCH (09:03)
[2022-10-14] MEDS: Magnesium Chloride 64 MG Tab.ER PO SCH (09:03)
[2022-10-14] MEDS: Cetirizine 10 MG Tab PO SCH (09:03)
[2022-10-14] MEDS: Furosemide 20 MG Tab PO SCH (09:03)
[2022-10-14] MEDS: Cyanocobalamin (Vitamin B12) 1,000 MCG Tab PO SCH (09:03)
[2022-10-14 09:13] VITALS: BP 146/74
[2022-10-14] MEDS: Metoprolol Tartrate 25 MG Tab PO SCH (09:13)
[2022-10-14 09:18] VITALS: PULSE 78
[2022-10-14] MEDS: Carbidopa/Levodopa 10-100 MG Tab PO SCH (10:14)
== END 2022-10-14 13:30 | disposition home health service (06) | DRG 948 ==
LOC: FB.MS 12:12
PROVIDERS: ADMIT Family Medicine; ATTEND Family Medicine
DX: R53.1 Weakness (principal); I48.92 Unspecified atrial flutter; E44.0 Moderate protein-calorie malnutrition; D64.9 Anemia, unspecified; N18.31 Chronic kidney disease, stage 3a; J44.9 Chronic obstructive pulmonary disease, unspecified; E86.0 Dehydration; E05.90 Thyrotoxicosis, unspecified without thyrotoxic crisis or storm; E78.00 Pure hypercholesterolemia, unspecified; I12.9 Hypertensive chronic kidney disease with stage 1 through stage 4 chronic kidney disease, or unspecified chronic kidney disease; G89.29 Other chronic pain; M54.9 Dorsalgia, unspecified; M19.90 Unspecified osteoarthritis, unspecified site; E66.9 Obesity, unspecified; E83.42 Hypomagnesemia; E87.6 Hypokalemia; Z86.19 Personal history of other infectious and parasitic diseases; Z86.74 Personal history of sudden cardiac arrest; Z95.818 Presence of other cardiac implants and grafts; Z79.899 Other long term (current) drug therapy; Z88.8 Allergy status to other drugs, medicaments and biological substances; Z98.49 Cataract extraction status, unspecified eye; Z90.49 Acquired absence of other specified parts of digestive tract; Z90.710 Acquired absence of both cervix and uterus; Z98.1 Arthrodesis status; G25.81 Restless legs syndrome; Z68.30 Body mass index [BMI] 30.0-30.9, adult
CPT/HCPCS: 36415; 80048; 82728; 83735; 85025; 97110-GO; 97110-GP; 97116-GP; 97161-GP; 97165-GO; 97530-GO; 97530-GP; 97535-GO; A9270-GY; Q0162; U0002

== ENCOUNTER 2023-08-21 16:00 | Emergency (ER) | payer MEDICARE, BC ==
[2023-08-21 16:34] VITALS: BP 143/65; PULSE 68
[2023-08-21 16:34] LABS: BASOPHILS ABSOLUTE AUTO 0.1 x10-3/uL (0.0-0.1); BASOPHILS PERCENT AUTO 0.7 % (0.2-1.5); EOSINOPHILS ABSOLUTE AUTO 0.1 x10-3/uL (0.0-0.8); EOSINOPHILS PERCENT AUTO 0.8 % (0.6-8.1); HEMATOCRIT 35.2 % (34.2-48.2); HEMOGLOBIN 11.5 g/dL (11.4-15.5); LYMPHOCYTES ABSOLUTE AUTO 1.7 x10-3/uL (1.0-4.4); LYMPHOCYTES PERCENT AUTO 18.9 % (18.4-52.1); MEAN CORPUSCULAR HEMOGLOBIN 30.1 pg (23.9-33.9); MEAN CORPUSCULAR HGB CONC 32.6 g/dL (31.9-34.8); MEAN CORPUSCULAR VOLUME 92.2 fL (76.7-100.5); MEAN PLATELET VOLUME 9.7 fL (7.1-12.4); MONOCYTES PERCENT AUTO 10.7 % (4.4-15.7); NEUTROPHILS ABSOLUTE AUTO 6.1 x10-3/uL (1.5-6.3); NEUTROPHILS PERCENT AUTO 68.9 % (30.8-76.2); PLATELET COUNT,PLT 131 x10(3)uL (151-488); RED BLOOD CELL COUNT 3.82 x10(6)uL (3.60-5.20); RED CELL DISTRIBUTION WIDTH 14.2 % (12.3-16.5); WHITE BLOOD CELL COUNT,WBC 8.9 x10-3/uL (3.0-10.3)
[2023-08-21] MEDS: Aspirin 81 MG Tab.Chew PO ONE ×2 (16:35→16:42)
[2023-08-21 16:47] LABS: PTT,PARTIAL THROMBOPLSTIN TIME 24.1 SECONDS (24.4-33.2)
[2023-08-21 16:50] LABS: INR 0.99 (1.00-1.24); PROTHROMBIN TIME 10.2 sec (9.0-11.1)
[2023-08-21 16:56] LABS: TROPONIN I 249.1 pg/mL (4.0-60.3)
[2023-08-21 16:57] LABS: EST CRCL DRUG DOSING (CG) 19.92 mL/min
[2023-08-21 16:59] LABS: A/G RATIO 0.9; ALANINE AMINOTRANSFERASE,ALT 10 U/L (12-36); ALBUMIN 3.3 g/dL (3.2-4.6); ALKALINE PHOSPHATASE 118 IU/L (56-112); ASPARTATE AMNIOTRANSFERASE,AST 16 IU/L (5-25); BILIRUBIN TOTAL 0.7 mg/dL (0.1-1.3); BLOOD UREA NITROGEN,BUN 51 mg/dL (7-18); BUN/CREATININE RATIO 26.8 (9-20); CALCIUM 9.2 mg/dL (8.6-10.2); CARBON DIOXIDE,CO2 26 mmol/L (21-32); CHLORIDE,CL 104 mmol/L (100-110); CREATININE 1.9 mg/dL (0.55-1.02); ESTIMATED GFR 27 mL/min (>60); GLUCOSE RANDOM 98 mg/dL (80-116); POTASSIUM,K 3.6 mmol/L (3.5-5.3); PROTEIN TOTAL,TP 6.9 g/dL (6.0-8.0); SODIUM,NA 142 mmol/L (135-145)
== END 2023-08-21 18:54 ==
LOC: FB.ED 16:00
DX: I24.9 Acute ischemic heart disease, unspecified (principal); E05.90 Thyrotoxicosis, unspecified without thyrotoxic crisis or storm; I44.7 Left bundle-branch block, unspecified; R79.89 Other specified abnormal findings of blood chemistry; E78.00 Pure hypercholesterolemia, unspecified; I12.9 Hypertensive chronic kidney disease with stage 1 through stage 4 chronic kidney disease, or unspecified chronic kidney disease; N18.9 Chronic kidney disease, unspecified; J45.909 Unspecified asthma, uncomplicated; J44.9 Chronic obstructive pulmonary disease, unspecified; M19.90 Unspecified osteoarthritis, unspecified site; Z88.8 Allergy status to other drugs, medicaments and biological substances
CPT/HCPCS: 36415; 71045; 80053; 83735; 83880; 84484; 85025; 85610; 85730; 93005; 99285; A9270-GY